=== PATIENT | male | born 1995 | race American Indian/Alaskan Native ===

== ENCOUNTER 2021-04-16 21:49 | Emergency (ER) | payer SELFPAY ==
--- NOTE | 2021-04-16 21:56 | Emergency Department Report ---
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 Pain is d ull and throbbing worse with certain certain positions and range of motion. No numbness or tingling is appreciated. No loss of bowel bladder no saddle paresthesia Complaint: back pain, back injury -: Gradual Radiation: none Severity: mild Consistency: constant Improves With: none Worsens With: movement - Related Data Previous Rx's Medication Instructions Recorded Last Taken Type Ketorolac [Toradol] 10 mg PO Q6H PRN #10 tablet 04/16/21 Unknown Rx methOCARBAMOL [Robaxin TAB] 750 mg PO Q8H #20 tablet 04/16/21 Unknown Rx Allergies Allergy/AdvReac Type Severity Reaction Status Date / Time No Known Allergies Allergy Verified 04/16/21 21:53 ED Review of Systems ROS: Stated complaint: BACK PAIN Other details as noted in HPI Comment: All other systems reviewed and negative ED Past Medical Hx - Past Medical History Previous Medical History?: No - Medications Home Medications: Home Medications Medication Instructions Recorded Confirmed Last Taken Type Ketorolac [Toradol] 10 mg PO Q6H PRN #10 tablet 04/16/21 Unknown Rx methOCARBAMOL [Robaxin TAB] 750 mg PO Q8H #20 tablet 04/16/21 Unknown Rx ED Physical Exam - General Limitations: No Limitations General appearance: alert, in no apparent distress - Head Head exam: Present: atraumatic, normocephalic - Eye Eye exam: Present: normal appearance - ENT ENT exam: Present: mucous membranes moist - Neck Neck exam: Present: normal inspection - Respiratory Respiratory exam: Present: normal lung sounds bilaterally. Absent: respiratory distress - Cardiovascular Cardiovascular Exam: Present: regular rate, normal rhythm. Absent: systolic murmur, diastolic murmur, rubs, gallop - GI/Abdominal GI/Abdominal exam: Present: soft, normal bowel sounds - Rectal Rectal exam: Present: deferred - Extremities Exam Extremities exam: Present: normal inspection - Back Exam Back exam: Present: normal inspection, muscle spasm, paraspinal tenderness. Absent: CVA tenderness (R), CVA tenderness (L) - Neurological Exam Neurological exam: Present: alert, oriented X3, CN II-XII intact, normal gait - Psychiatric Psychiatric exam: Present: normal affect, normal mood - Skin Skin exam: Present: warm, dry, intact, normal color. Absent: rash ED Course Vital Signs 04/16/21 21:55 Temperature 97.8 F Pulse Rate 69 Respiratory 18 Rate Blood Pressure 131/90 [Left] O2 Sat by Pulse 100 Oximetry Critical care attestation.: If time is entered above; I have spent that time in minutes in the direct care of this critically ill patient, excluding procedure time. ED Disposition Clinical Impression: Lumbar paraspinal muscle spasm Disposition: HOME / SELF CARE / HOMELESS Is pt being admited?: No Does the pt Need Aspirin: No Condition: Stable Instructions: Muscle Cramps and Spasms, Back Injury Prevention, [id number], Back Injury Prevention Additional Instructions: You evaluate emergency department today for your back pain you evaluate did not show any signs of any medical conditions requiring emergent intervention at this time. Recommend you taking ibuprofen and Tylenol as needed for pain and alternate the medication every 3 hours for instance at noon you can take ibuprofen 3:00 you can take Tylenol at 6 PM to take ibuprofen. Please take the prescribed medication as recommended as well and do not drive while taking the Robaxin and do not take any medication containing Motrin/ibuprofen while taking Toradol. Please schedule pulmonology for follow-up with your primary care doctor for reevaluation of your symptoms. Return emerge department if you experience worsening back pain, difficulty walking, fevers, numbness, tingling, incontinence or any other concerning symptoms. Prescriptions: methOCARBAMOL [Robaxin TAB] 750 mg PO Q8H #20 tablet Ketorolac [Toradol] 10 mg PO Q6H PRN #10 tablet PRN Reason: Pain Referrals: [facility] [Provider Group] - 3-5 Days
[2021-04-17 00:38] VITALS: BP 140/90
== END 2021-04-17 00:39 | disposition home or self-care (01) ==
LOC: ED 21:49
DX: M62.830 Muscle spasm of back (principal)
CPT/HCPCS: 99282